=== PATIENT | female | born 1950 | race Caucasian/White ===

== ENCOUNTER 2016-09-18 13:44 | Emergency (ER) | payer MEDICARE, OTHER | END 2016-09-18 19:35 | disposition short-term general hospital (02) | LOC: ER 13:44 | DX: R41.82 Altered mental status, unspecified (principal); I48.91 Unspecified atrial fibrillation; C34.90 Malignant neoplasm of unspecified part of unspecified bronchus or lung; E03.9 Hypothyroidism, unspecified; K21.9 Gastro-esophageal reflux disease without esophagitis; F32.9 Major depressive disorder, single episode, unspecified; F41.9 Anxiety disorder, unspecified; F17.210 Nicotine dependence, cigarettes, uncomplicated; Z90.710 Acquired absence of both cervix and uterus; Z79.82 Long term (current) use of aspirin; Z79.84 Long term (current) use of oral hypoglycemic drugs; Z79.02 Long term (current) use of antithrombotics/antiplatelets; Z79.899 Other long term (current) drug therapy | CPT/HCPCS: 36415; 96361; 96365; 96375; J2060 ==